=== PATIENT | female | born 1960 | race African-American/Black ===

== ENCOUNTER 2016-12-10 15:32 | Emergency (ER) | payer MEDICAID ==
[~2016-12-10] VITALS: Ht 170.2 cm; Wt 91.0 kg
[~2016-12-10 15:32] MED LIST: ACET-3161 PO; CETI10TA6 PO; HYDR-523 PO; HYDR12.54 PO; IBUP-1510 PO; LISI1TAB9 PO; NAPR-217; OMEP20TA80 PO; PROAIR; RANI150T7 PO
[2016-12-10 16:47] VITALS: BP 153/105
[2016-12-10] MEDS ORDERED: IBUP-1510 PO (16:51)
== END 2016-12-10 19:05 | disposition left against medical advice (07) ==
LOC: ER 15:33
DX: Z53.21 Procedure and treatment not carried out due to patient leaving prior to being seen by health care provider (principal)

== ENCOUNTER 2023-09-08 17:43 | Emergency (ER) | payer MEDICARE, MEDICAID ==
[~2023-09-08] VITALS: Ht 175.3 cm; Wt 90.0 kg
[~2023-09-08 17:43] MED LIST changes: -IBUP-1510 PO; +IBUP-2030 PO; +NAPR-1176; -NAPR-217; +OMEP20TA23 PO; -OMEP20TA80 PO
[2023-09-08 17:46] VITALS: O2SAT 98
[2023-09-08] MEDS: SODIUM CHLORIDE 0.9% 1,000 ML IV ONE (19:16)
[2023-09-08 20:17] LABS: BASOPHILS % 0.7 % (0.0-2.0); EOSINOPHILS % 0.2 % (0.0-5.0); HEMATOCRIT. 36.4 % (36.0-48.0); HEMOGLOBIN. 12.2 g/dL (12.0-16.0); LYMPHOCYTES % 11.3 % (20.0-50.0); MEAN CORPUSCULAR HEMOGLOBIN 28.3 pg (28.0-32.0); MEAN CORPUSCULAR HGB CONC 33.3 g/dL (31.0-37.0); MEAN CORPUSCULAR VOLUME 84.9 fL (81.0-99.0); MEAN PLATELET VOLUME 7.7 fl (7.4-10.4); NEUTROPHILS % 82.8 % (40.0-76.0); PLATELET 265 x1000/uL (130-400); RED BLOOD CELL COUNT 4.29 mill/uL (4.2-5.4); RED CELL DISTRIBUTION WIDTH 16.3 % (11.6-14.6); WHITE BLOOD COUNT 11.9 x1000/uL (4.5-11.0)
[2023-09-08 20:22] LABS: CLARITY URINE CLEAR (CLEAR); COLOR URINE YELLOW (YELLOW); GLUCOSE URINE NEGATIVE (NEGATIVE); KETONES URINE NEGATIVE (NEGATIVE); LEUKOCYTE ESTERASE URINE TRACE (NEGATIVE); NITRITE URINE NEGATIVE (NEGATIVE); OCCULT BLOOD URINE NEGATIVE (NEGATIVE); PH URINE 5.5 (4.5-8.0); PROTEIN URINE NEGATIVE (NEGATIVE); SPECIFIC GRAVITY URINE 1.017 (1.005-1.030)
[2023-09-08 20:28] LABS: PROTHROMBIN TIME 11.2 sec (9.6-11.0)
[2023-09-08 20:31] LABS: ALANINE AMINOTRANSFERASE < 7 IU/L (10-49); ASPARTATE AMINOTRANSFERASE 12 IU/L (<34); BILIRUBIN TOTAL 0.3 mg/dL (0.1-1.0); CALCIUM 8.7 mg/dL (8.7-10.4); CARBON DIOXIDE 26 mEq/L (21-32); CHLORIDE 105 mEq/L (98-107); CREATININE 0.9 mg/dL (0.6-1.0); GLUCOSE 110 mg/dL (70-105); POTASSIUM 3.6 mEq/L (3.5-5.1); PROTEIN TOTAL 7.2 g/dL (6.0-8.3); SODIUM 136 mEq/L (136-145); TROPONIN I HIGH SENSITIVITY 12 ng/L (3.0-34); UREA NITROGEN BLOOD 15 mg/dL (9-23)
[2023-09-08 20:47] LABS: SQUAMOUS EPITHELIAL CELL URINE 1+ /lpf (RARE/1+)
[2023-09-08 20:48] LABS: BACTERIA URINE 1+; RBC URINE NONE SEEN /hpf (0-2); WBC URINE 0-2 /hpf (0-2); YEAST URINE NONE SEEN
[2023-09-08] MEDS ORDERED: NAPR375T5 MT (20:53)
[2023-09-08] MEDS: NAPROXEN 375MG TABLET PO ONE (21:40)
[2023-09-08 22:22] VITALS: BP 155/65; PULSE 76; RESP 20; TEMP 98.2
== END 2023-09-08 22:24 | disposition home or self-care (01) ==
LOC: ER 17:43
DX: R55 Syncope and collapse (principal); Z88.8 Allergy status to other drugs, medicaments and biological substances
CPT/HCPCS: 99285; 96360; 70450; 71045; 80053; 81003; 83880; 85025; 85610; 84484; 36415; 93005; J7030